=== PATIENT | female | born 1935 | race African-American/Black ===

== ENCOUNTER 2019-09-28 07:31 | Emergency (ER) | payer OTHER ==
--- NOTE | 2019-09-28 07:39 | PDOC ---
Attending Attestation - Resident Resident Name: Sa Yahairaira - HPI HPI: 09/28/19 10:00 Pt presents to the ED complaining of bleeding from the site of an arterial puncture for stent placement. Bleeding started at 10 pm. Patient did not hold pressure, but went to sleep and found that slow oozing was continuing when she woke up this morning. Denies other complaints. 09/28/19 10:16 - Physicial Exam PE: 09/28/19 10:32 Agree with resident exam. Patient is alert and oriented and in no acute distress. No bleeding from the puncture site. - Medical Decision Making 09/28/19 10:32 Pt presents to the ED complaining of bleeding after cath that resolved in the ED with pressure. Will discharge home with instructions to return to the ED for worsning symptoms and to call her [employer] consultant for follow up.
[2019-09-28 07:51] VITALS: BMI 27.1
[2019-09-28 08:04] VITALS: TEMP 98.1
[2019-09-28 09:04] LABS: BASO % 0.2 % (0-2.0); EOS % 0.8 % (0-4.5); HEMATOCRIT 41.2 % (32.4-45.2); HEMOGLOBIN 13.7 GM/dL (10.7-15.3); LYMPH % 15.4 % (8-40); MCH 27.7 pg (25.7-33.7); MCHC 33.3 g/dl (32.0-36.0); MEAN CELL VOLUME 83.3 fl (80-96); MEAN PLT VOLUME 8.7 fl (7.5-11.1); MONO % 7.6 % (3.8-10.2); PLATELET COUNT 254 K/MM3 (134-434); RBC 4.95 M/mm3 (3.60-5.2); RDW 14.1 % (11.6-15.6); WHITE BLOOD COUNT 6.4 K/mm3 (4.0-10.0)
[2019-09-28 09:17] LABS: INR 1.04 (0.83-1.09); PROTHROMBIN TIME (PATIENT) 12.3 SEC (9.7-13.0)
[2019-09-28 09:41] LABS: ALBUMIN 3.8 g/dl (3.4-5.0); BILIRUBIN,TOTAL 0.3 mg/dL (0.2-1); CALCIUM 9.3 mg/dL (8.5-10.1); CREATININE 0.9 mg/dL (0.55-1.3); POTASSIUM 4.4 mmol/L (3.5-5.1); TOT PROT 6.9 g/dl (6.4-8.2)
[2019-09-28 10:22] VITALS: BP 145/72; PULSE 71
--- NOTE | 2019-09-28 10:51 | PDOC ---
History of Present Illness - General Chief Complaint: Wound Stated Complaint: BLEEDING SURGICAL INCISION Time Seen by Provider: 09/28/19 07:34 Past History - Past Medical History Allergies/Adverse Reactions: Allergies Allergy/AdvReac Type Severity Reaction Status Date / Time No Known Allergies Allergy Verified 09/28/19 07:58 Home Medications: Ambulatory Orders Rosuvastatin [Crestor -] 10 mg PO DAILY 03/17/15 Valsartan [Diovan] 80 mg PO DAILY 03/17/15 Clopidogrel Bisulfate [Plavix] 75 mg PO DAILY 09/28/19 Sitagliptin Phosphate [Januvia] 50 mg PO DAILY 09/28/19 COPD: No Diabetes: Yes HTN: Yes - Psycho Social/Smoking Cessation Hx Smoking History: Unknown if ever smoked Have you smoked in the past 12 months: No Information on smoking cessation initiated: No Hx Alcohol Use: No Drug/Substance Use Hx: No *Physical Exam - Vital Signs Last Vital Signs Temp Pulse Resp BP Pulse Ox 98.1 F 71 18 145/72 100 09/28/19 10:21 09/28/19 10:21 09/28/19 08:00 09/28/19 10:21 09/28/19 10:21 ED Treatment Course - LABORATORY CBC & Chemistry Diagram: 09/28/19 08:25 09/28/19 08:25 - ADDITIONAL ORDERS Additional order review: Laboratory Results 09/28/19 09/28/19 08:25 08:25 PT with INR 12.30 INR 1.04 Sodium 139 Potassium 4.4 Chloride 105 Carbon Dioxide 28 Anion Gap 6 L BUN 14.0 Creatinine 0.9 Est GFR (CKD-EPI)AfAm 68.53 Est GFR (CKD-EPI)NonAf 59.13 Random Glucose 120 H Calcium 9.3 Total Bilirubin 0.3 AST 18 ALT 24 Alkaline Phosphatase 73 Total Protein 6.9 Albumin 3.8 09/28/19 08:25 RBC 4.95 MCV 83.3 MCHC 33.3 RDW 14.1 MPV 8.7 Neutrophils % 76.0 D Lymphocytes % 15.4 D Monocytes % 7.6 Eosinophils % 0.8 Basophils % 0.2 Discharge - Discharge Information Problems reviewed: Yes Clinical Impression/Diagnosis: Bleeding Condition: Good Disposition: HOME - Admission No - Follow up/Referral Referrals: Yusef Ochoa [Primary Care Provider] - - Patient Discharge Instructions Additional Instructions: You were seen in the emergency room for bleeding from the angioplasty site. The bleeding has stopped. I recommend holding pressure for 15-20 minutes if you notice bleeding again. Follow the recommendations from the office for activities. Come back to the emergency room if you notice swelling in the groin, blood is coming out fast, the bleeding continues despite 15-20 minutes of pressure or if any new or concerning symptom develops. Thank you - Post Discharge Activity
== END 2019-09-28 11:13 | disposition home or self-care (01) ==
LOC: JER 07:31
DX: I97.610 Postprocedural hemorrhage of a circulatory system organ or structure following a cardiac catheterization (principal); I10 Essential (primary) hypertension; E11.9 Type 2 diabetes mellitus without complications; Z79.84 Long term (current) use of oral hypoglycemic drugs; Z79.02 Long term (current) use of antithrombotics/antiplatelets
CPT/HCPCS: 36415; 80053; 85025; 85610; 99283-25